=== PATIENT | female | born 1965 | race Caucasian/White ===

== ENCOUNTER 2017-12-24 13:04 | Emergency (ER) | payer BC ==
--- NOTE | 2017-12-24 13:06 | UC ---
Knee Pain HPI - HPI Summary HPI Summary: 52 yo female presents with left knee pain. She tells me that about 3 hours [employer]GMENT [employer] she was standing at a table at home when she twisted and reached over the table. [place] and heard a pop in her left knee with mild pain. She was able to ambulate and went to work. Had to leave work as the pain significantly increased. She has not taken anything for pain. She cannot bear weight due to pain. Denies numbness or tingling. - History of Current Complaint Stated Complaint: L KNEE PAIN Time Seen by Provider: 12/24/17 13:06 Hx Obtained From: Patient Onset/Duration: Sudden Onset Severity Initially: Moderate Severity Currently: Moderate Pain Intensity: 4 Pain Scale Used: 0-10 Numeric - Allergies/Home Medications Allergies/Adverse Reactions: Allergies Allergy/AdvReac Type Severity Reaction Status Date / Time No Known Allergies Allergy Verified 12/24/17 13:15 Home Medications: Home Medications ALPRAZolam [Alprazolam] 0.5 mg PO ONCE PRN 12/24/17 [History Confirmed 12/24/17] diazePAM [Valium] 2 ml PO ONCE PRN 12/24/17 [History Confirmed 12/24/17] PMH/Surg Hx/FS Hx/Imm Hx Psychological History: Anxiety - Surgical History Surgical History: Yes Surgery Procedure, Year, and Place: Right knee - Family History Known Family History: Positive: None - Social History Occupation: Employed Full-time Lives: With Family Alcohol Use: Occasionally Substance Use Type: None Smoking Status (MU): Never Smoked Tobacco Review of Systems Constitutional: Negative Skin: Negative Respiratory: Negative Cardiovascular: Negative Musculoskeletal: Other: - Left knee pain Neurological: Negative Psychological: Negative All Other Systems Reviewed And Are Negative: Yes Physical Exam - Summary Physical Exam Summary: GENERAL: NAD. WDWN. No pain distress. SKIN: No rashes, sores, lesions, or open wounds. CHEST: No accessory muscle use. Breathing comfortably and in no distress. CV: . Pulses intact popliteal, PT, and DP. Cap refill <2seconds MSK: LEFT KNEE: Severe TTP medial aspect joint line. Extension to 10deg. Flexion to >90deg.Strength 5/5. No edema or obvious bony deformities. Unable to perform specialized testing due to pain. NEURO: Alert. Sensations intact and symmetric B/L LEs PSYCH: Age appropriate behavior. Triage Information Reviewed: Yes Vital Signs: Vital Signs: Temp Pulse Resp BP Pulse Ox 98.7 F 82 18 138/74 98 12/24/17 13:08 12/24/17 13:08 12/24/17 13:08 12/24/17 13:08 12/24/17 13:08 Vital Signs Reviewed: Yes Knee Pain Course/Dx - Course Course Of Treatment: XR: IMPRESSION: NO ACUTE OSSEOUS INJURY. IF SYMPTOMS PERSIST, RECOMMEND REPEAT IMAGING. Advised RICE, ibuprofen, and f/u with Sports Med. Pt declined crutches as she has some at home. - Differential Dx/Diagnosis Provider Diagnoses: Left knee pain Discharge - Sign-Out/Discharge Documenting (check all that apply): Patient Departure All imaging exams completed and their final reports reviewed: Yes - Discharge Plan Condition: Stable Disposition: HOME Patient Education Materials: Knee Pain (ED) Referrals: Enoc Liao MD [Primary Care Provider] - Chaya Guardado MD [Medical Doctor] - As Soon As Possible Additional Instructions: If you develop a fever, shortness of breath, chest pain, new or worsening symptoms - please call your PCP or go to the ED. Your blood pressure was high at todays visit. Please see your primary provider within 4 weeks for recheck and re-evaluation. 1) Rest, Ice, and elevate your knee as much as possible 2) Please call Dr. Guardado at the number below to schedule a follow up appointment as soon as possible - Billing Disposition and Condition Condition: STABLE Disposition: Home
[2017-12-24 13:16] VITALS: BP 138/74
[2017-12-24] MEDS ORDERED: Ibuprofen TAB* 600 MG PO ONE (13:27)
--- NOTE | 2017-12-24 13:58 | RAD ---
HISTORY: Pain COMPARISONS: None VIEWS: 4 , Frontal, lateral, axial, and oblique views of the left knee FINDINGS: BONE DENSITY: Normal. BONES: There is no displaced fracture. JOINTS: There is no arthropathy. There is no suprapatellar joint effusion or lipohemarthrosis. ALIGNMENT: There is no dislocation. SOFT TISSUES: Unremarkable. OTHER FINDINGS: None. IMPRESSION: NO ACUTE OSSEOUS INJURY. IF SYMPTOMS PERSIST, RECOMMEND REPEAT IMAGING.
== END 2017-12-24 14:17 | disposition home or self-care (01) ==
LOC: UCEAST 13:04
DX: M25.562 Pain in left knee (principal)
CPT/HCPCS: 99211; A9270-GY; G0463

== ENCOUNTER 2018-03-30 08:30 | Day surgery (SDC) | payer BC ==
--- NOTE | 2018-03-16 07:47 | HP ---
HISTORY AND PHYSICAL: DATE OF ADMISSION/SURGERY: 03/30/18 DATE OF OFFICE VISIT: 03/15/18 SURGEON: Kashif Timmons MD * (DICTATED BY SHO CHANEL) PROCEDURE: Left knee arthroscopy with partial meniscectomy. CHIEF COMPLAINT: Left knee pain. HISTORY OF PRESENT ILLNESS: Ms. Abebe is a 52-year-old female with continued complaints of right knee pain. She has failed conservative treatment and an MRI confirms a meniscus tear. She has elected to proceed with surgery. PAST MEDICAL HISTORY: Depression and anxiety. PAST SURGICAL HISTORY: 1. Right knee arthroscopy. 2. Right knee ACL reconstruction. 3. Appendectomy. CURRENT MEDICATIONS: 1. Alprazolam 0.5 mg daily. 2. Valium 5 mg as needed. ALLERGIES: No known drug allergies. FAMILY HISTORY: Diabetes, coronary artery disease, and cancer. SOCIAL HISTORY: She is a 52-year-old female. She lives with her and children. She does not smoke or use drugs. Uses occasional alcohol. REVIEW OF SYSTEMS: A complete 14-point review of systems was reviewed with the patient. It was all negative. She denies history of DVT, PE, hepatitis, HIV, or MRSA. She does report having a spinal headache after an epidural years ago. PHYSICAL EXAMINATION GENERAL: She is well developed, well nourished, in no acute distress. VITAL SIGNS: She stands 5 feet 6 inches tall, weighs 172 pounds, her blood pressure is 110/66 and heart rate is 92. HEENT: Normocephalic, atraumatic. NECK: Supple. No palpable lymph nodes. PULMONARY: The lungs are clear to auscultation bilaterally. CARDIO: Regular rate and rhythm. ABDOMEN: Soft, nontender, nondistended. NEUROLOGICAL: She is alert and oriented x3. MUSCULOSKELETAL: Left lower extremity, the skin is intact. There are no open wounds or abrasions. Range of motion is 2 to 100 degrees. She has positive Wilson's and tenderness over the medial joint line. There is mild effusion and pain with deep flexion. Her calf is soft and nontender. She has 2+ dorsalis pedis pulses, intact sensation. Her lower extremity muscle group strengths are intact at 5/5. ASSESSMENT AND PLAN: Ms. Abebe is a 52-year-old female with continued complaints of left knee pain. She has elected to proceed with left knee arthroscopy with partial meniscectomy. The surgery is scheduled for 03/30/[address] Timmons discussed the risks and benefits of the surgery at today's visit and all of her questions were answered. She will follow with Dr. Timmons 7 to 10 days after the surgery. SHO CHANEL [id number]/[facility] #: [id number] [facility] HOSPITALPerlita
[~2018-03-30 08:30] MED LIST: Buffered Lidocaine 0.9% SYRIN* 5 ML/SYR SYRINGE INTRADERM ONE; Lactated Ringers 1000 ML Bag* 1,000 ML IV SCH
[2018-03-30] MEDS ORDERED: ceFAZolin 2 GM PREMIX in ORs 2 GM/50 ML BAG IVPB ONE (09:13)
[2018-03-30] MEDS ORDERED: fentaNYL* 50 MCG/ML 2 ML VIAL (100 MCG VIAL) ONE ×2 (09:47)
[2018-03-30] MEDS ORDERED: Midazolam* 1 MG/ML 5 ML VIAL (5 MG) ONE (09:47)
[2018-03-30] MEDS ORDERED: Lidocaine 1% MPF wEPI 200,000* 30 ML SDV ONE (09:53)
[2018-03-30] MEDS ORDERED: Ropivacaine* 2 MG/ML 20 ML VIAL (0.2%) ONE (09:54)
[2018-03-30] MEDS ORDERED: Propofol* 10 MG/ML 20 ML BTL ONE (10:06)
[2018-03-30] MEDS ORDERED: Lidocaine 2% PF * 5 ML VIAL ONE (10:06)
[2018-03-30] MEDS ORDERED: methylPREDNISolone ACETATE 80* 80 MG/ML 1 ML VIAL ONE (10:07)
[2018-03-30] MEDS ORDERED: Ketorolac INJ* 30 MG/ML 1 ML VIAL ONE (10:12)
[2018-03-30] MEDS ORDERED: DiMENhydriNATE IV* 50 MG/ML VIAL IV PUSH PRN (10:26)
[2018-03-30] MEDS ORDERED: oxyCODONE/Acetamin 5/325 MG* TAB PO PRN (10:26)
[2018-03-30] MEDS ORDERED: fentaNYL* 50 MCG/ML 2 ML VIAL (100 MCG VIAL) IV PRN (10:26)
[2018-03-30] MEDS ORDERED: Naloxone* 0.4 MG/ML 1 ML VIAL IV PRN (10:26)
[2018-03-30] MEDS ORDERED: HYDROcodone/ACETAMIN 5-325 MG* 1 TAB PO PRN (10:26)
[2018-03-30] MEDS ORDERED: Ondansetron INJ* 2 MG/ML VIAL ONE (10:28)
[2018-03-30 13:32] VITALS: BP 119/78
--- NOTE | 2018-03-30 21:57 | OP ---
CC: PCP, Enoc Liao MD * DATE OF OPERATION: 03/30/18 - SDS DATE OF : 67 SURGEON: Kashif Timmons MD FENCE INSTALLER: None available. PRE-OP DIAGNOSES: 1. Right knee arthritis. 2. Left knee medial meniscus parrot beak tear. POST-OP DIAGNOSES: 1. Right knee arthritis. 2. Left knee medial meniscus parrot beak tear. OPERATIVE PROCEDURE: 1. Right knee intraarticular injection with 80 mg of Depo-Medrol. 2. Left knee arthroscopy with partial medial meniscectomy and partial lateral meniscectomy. COMPLICATIONS: None. ESTIMATED BLOOD LOSS: Minimal. INDICATIONS: Saritha Abebe is a 52-year-old female, who sustained injury to her left knee. At the end of December, she was diagnosed with parrot beak displaced fragment of her medial meniscus. She had minimal arthritis. Risks and benefits of surgery were discussed at length. She had to proceed with surgery at her convenient time. Risks were discussed at length including, but not limited to, bleeding; infection; damage to nerves, vessels, surrounding structures; wound nonhealing; persistent pain; need for further surgery; scarring; stiffness; incomplete relief of symptoms; risk of anesthesia; and risk of DVT. DESCRIPTION OF PROCEDURE: The patient was greeted in the preoperative area by the attending surgeon. Correct extremity was marked and consent was confirmed. The patient was brought back to the operating suite, where she was placed in supine position on the operating table. She then underwent general anesthesia and LMA intubation, after which she was appropriately positioned on the bed. The lateral post was positioned. A nonsterile tourniquet was placed high on the proximal thigh. Attention was then directed to the right leg. After appropriate surgical pause indicating site, side, procedure, and administration of antibiotics, the right leg was prepped and draped in the usual sterile fashion. A 22-gauge needle was used to inject 80 mg of Depo-Medrol and 3 cc of 0.2% ropivacaine intra- articularly. A Band-Aid was applied. The left leg was then prepped and draped in the usual sterile fashion beginning with chlorhexidine soap, scrub, alcohol wipe, and a final prep with ChloraPrep. After appropriate surgical pause indicating side, site, procedure, and administration of antibiotics, 1% lidocaine with epi was used to inject the intraarticular joint, after which the anterolateral portal was then made sharply with a 11 blade. Scope was then introduced into the joint, joint was examined. There was synovitis anteriorly. The ACL and PCL were intact. The medial portal was made in an outside-in fashion. The probe was then used to identify the medial meniscus. There was parrot beak unstable flap that was displaced. The probe was used to bring this into the joint. This extended to the root. The placido and biters were then used to debride this back and remove the loose fragment. There were grade 0 to 1 changes to the medial femoral condyle, grade 1 changes to the plateau. The scope was positioned in the [id number] position and the lateral compartment had grade 1 to 2 changes of femoral condyle and plateau. The lateral meniscus had tearing and fraying at the root. This was debrided back using the shaver. The knee was then placed to full extension. The trochlea had grade 0 changes. The patella had small areas of softening in the middle with very small area of grade 2 changes, minimal arthritis. Medial and lateral gutters were evaluated and there was evidence of loose debris, but this was likely the meniscus. The medial compartment was examined again. The final images were obtained. The knee was then thoroughly lavaged to remove any loose debris. The wounds were then copiously irrigated with sterile saline. The portals were closed with 3-0 nylon in interrupted fashion. The knee was then intra-articularly injected with 15 cc of 0.2% ropivacaine. Sterile dressings were applied and Cryo/Cuff was applied. She was awoken from anesthesia and transferred to PACU in stable condition. POSTOPERATIVE PLAN: She will be weightbearing as tolerated with crutches for the first 3 to 5 days. Discharged on pain medications. DVT prophylaxis was considered, but deferred due to no previous personal or family history. I will see the patient back in 10 to 14 days. [id number]/[facility] #: [id number] SUNI
== END 2018-03-30 13:45 | disposition home or self-care (01) ==
LOC: OR 08:30
PROVIDERS: ATTEND Orthopaedic Surgery
DX: S83.242A Other tear of medial meniscus, current injury, left knee, initial encounter (principal); S83.289A Other tear of lateral meniscus, current injury, unspecified knee, initial encounter; M17.11 Unilateral primary osteoarthritis, right knee; X58.XXXA Exposure to other specified factors, initial encounter; Y92.9 Unspecified place or not applicable
CPT/HCPCS: 81025; J0690; J1040; J1885; J2001; J2250; J2405; J2704; J2795; J3010

== ENCOUNTER 2018-11-09 12:52 | Emergency (ER) | payer BC ==
[2018-11-09 13:05] VITALS: BP 157/93
--- NOTE | 2018-11-09 13:36 | UC ---
Complaint Female HPI - HPI Summary HPI Summary: 53-year-old female presents with onset of dysuria, frequency, and urgency this morning. Denies fever, chills, abdominal pain, back or flank pain, nausea, vomiting, hematuria, vaginal discharge, or abnormal vaginal bleeding. - History Of Current Complaint Chief Complaint: UCGU Stated Complaint: URINARY Time Seen by Provider: 11/09/18 13:07 Hx Obtained From: Patient Hx Last Menstrual Period: 10/14/18 Pain Intensity: 7 - Allergies/Home Medications Allergies/Adverse Reactions: Allergies Allergy/AdvReac Type Severity Reaction Status Date / Time No Known Allergies Allergy Verified 03/30/18 09:18 Home Medications: Home Medications Cranberry Fruit Extract/Vit C [Azo Cranbery Urinary Trac 250-60 mg] 1 cap PO ONCE 11/09/18 [History Confirmed 11/09/18] FLUoxetine CAP* [PROzac CAP*] 60 mg PO DAILY 11/09/18 [History Confirmed ] PMH/Surg Hx/FS Hx/Imm Hx Psychological History: Anxiety, Depression - Surgical History Surgical History: Yes Surgery Procedure, Year, and Place: RIGHT KNEE ARTHROSCOPE FOR MEDIAL MENISCUS AND ACL 1995,. APPENDECTOMY 1976,. TONSILLECTOMY 1989, - Family History Known Family History: Positive: Non-Contributory - Social History Occupation: Employed Full-time Lives: With Family Alcohol Use: Occasionally Alcohol Amount: 3 beers Substance Use Type: None Smoking Status (MU): Never Smoked Tobacco Review of Systems All Other Systems Reviewed And Are Negative: Yes Constitutional: Negative: Fever, Chills Respiratory: Positive: Negative Cardiovascular: Positive: Negative Gastrointestinal: Negative: Abdominal Pain, Vomiting, Nausea Genitourinary: Positive: Dysuria, Frequency, Urgency, Abnormal Bleeding. Negative: Hematuria, Vaginal/Penile Discharge Musculoskeletal: Positive: Negative Neurological: Positive: Negative Is Patient Immunocompromised?: No Physical Exam - Summary Physical Exam Summary: GENERAL APPEARANCE: Well developed, well nourished, alert and cooperative, and appears to be in no acute distress. CARDIAC: Normal S1 and S2. No S3, S4 or murmurs. Rhythm is regular. There is no peripheral edema, cyanosis or pallor. Extremities are warm and well perfused. Capillary refill is less than 2 seconds. Peripheral pulses intact. LUNGS: Clear to auscultation without rales, rhonchi, wheezing or diminished breath sounds. ABDOMEN: Positive bowel sounds. Soft, nondistended, nontender. No guarding or rebound. No masses or hepatosplenomegally. No CVA tenderness. MUSKULOSKELETAL: ROM intact to all extremities. No joint erythema or tenderness. Normal muscular development. Normal gait. SKIN: Skin normal color, texture and turgor with no lesions or eruptions. Triage Information Reviewed: Yes Vital Signs: Initial Vital Signs Temp 98.3 F 11/09/18 12:58 Pulse 88 11/09/18 12:58 Resp 20 11/09/18 12:58 BP 157/93 11/09/18 12:58 Pulse Ox 99 11/09/18 12:58 Vital Signs Reviewed: Yes Complaint Female Dx - Course Course Of Treatment: 53-year-old female presents with onset of dysuria, frequency, and urgency this morning. Denies fever, chills, abdominal pain, back or flank pain, nausea, vomiting, hematuria, vaginal discharge, or abnormal vaginal bleeding. Afebrile. Hypertensive otherwise vital signs stable. Patient's exam was overall unremarkable. Patient had taken Azo therefore a urinalysis was not able to be performed. A urine culture was sent and is pending. Based on her symptoms I'll treat her empirically for a urinary tract infection using Bactrim DS 1 tab twice a day for 5 days. Instructed patient she could also continue to use the Azo as directed for the next 2 days to help with this discomfort. Patient is to follow-up with her primary care provider in 3 days if symptoms persist. Anticipatory guidance and warning symptoms were reviewed with the patient. Verbalizes understanding and agrees with plan of care. - Differential Dx/Diagnosis Differential Diagnosis/HQI/PQRI: Urinary Tract Infection Provider Diagnosis: UTI (urinary tract infection) Discharge - Sign-Out/Discharge Documenting (check all that apply): Patient Departure All imaging exams completed and their final reports reviewed: No Studies - Discharge Plan Condition: Stable Disposition: HOME Prescriptions: Sulfamethox/Trimethoprim DS* [Bactrim DS 800/160 TAB*] 1 tab PO BID 5 Days #10 tab Patient Education Materials: Urinary Tract Infection in Women (ED) Referrals: Enoc Liao MD [Primary Care Provider] - 3 Days Additional Instructions: We were unable to perform a urine test in the clinic today because of the Azo. Based on your symptoms we will start you on an antibiotic to treat for a urinary tract infection. We will send a urine culture today to see what bacteria grow out and make sure the antibiotic you were prescribed is appropriate to treat the infection. It may take 48-72 hours to get these results. We will contact you if there is any change in your treatment plan. Start Bactrim DS 1 tab twice a day for 5 days. You may continue taking the Azo as directed for the next 2 days. Drink plenty of fluids. To help prevent urinary tract infections: 1) Be sure to wipe from front to back. 2) Urinate immediately after any sexual intercourse. 3) Avoid taking bubble baths. Follow up with your primary care provider in 3-5 days if symptoms persist. Seek immediate medical attention in the emergency room if you develop fever greater than 100.5 F, have severe abdominal pain, persistent vomiting, or any worsening of symptoms. - Billing Disposition and Condition Condition: STABLE Disposition: Home - Attestation Statements Provider Attestation: I was available for consult. This patient was seen by the GERMAN. The patient was not presented to, seen by, or examined by me. Tung Israel MD
== END 2018-11-09 13:50 | disposition home or self-care (01) ==
LOC: UCEAST 12:52
DX: N39.0 Urinary tract infection, site not specified (principal); F41.9 Anxiety disorder, unspecified; F32.9 Major depressive disorder, single episode, unspecified
CPT/HCPCS: 87077; 87086; 87186; 99212; G0463